=== PATIENT | female | born 1975 | race Caucasian/White ===

== ENCOUNTER → 2020-09-28 13:30 | Outpatient (CLI) | payer BC, SELFPAY ==
--- NOTE | ~2020-09-28 | MM_ITS ---
EXAMINATION: MM screening merlyn BI w tio HISTORY: Screening mammogram TECHNIQUE: Craniocaudal and mediolateral oblique 3-D tomosynthesis images were obtained and synthetic 2-D images were generated. CAD analysis was submitted and interpreted. COMPARISON: No prior mammogram is available for comparison at this institution. BREAST PARENCHYMAL COMPOSITION: The breasts are heterogeneously dense, which may obscure small masses . FINDINGS: Right breast asymmetries including 12 mm upper lobular possible mass (MLO Tomosynthesis edward ge 23/41) are suggested. Diagnostic right mammogram and right breast ultrasound examination are recom mended. Otherwise there is no evidence of suspicious mass, calcification, or architectural distortion to sugg est malignancy in either breast. There has been no suspicious interval change. IMPRESSION: 1. Right breast asymmetries, possible mass 2. Diagnostic right mammogram and right breast ultrasound examination are recommended BI-RADS Category 0: Incomplete: Needs additional imaging evaluation. Reviewed, dictated and finalized at location A. IMPRESSION: 1. Right breast asymmetries, possible mass 2. Diagnostic right mammogram and right breast ultrasound examination are recom mended BI-RADS Category 0: Incomplete: Needs additional imaging evaluation.
== END ==
PROVIDERS: Visit Provider Obstetrics & Gynecology Gynecology
DX: Z12.31 Encounter for screening mammogram for malignant neoplasm of breast (principal); R92.8 Other abnormal and inconclusive findings on diagnostic imaging of breast
CPT/HCPCS: 77063; 77067

== ENCOUNTER 2020-10-20 12:39 | Emergency (ER) | payer BC, SELFPAY ==
--- NOTE | 2020-10-20 12:42 | ED.ANXIETY ---
HPI - Anxiety General Chief Complaint: Anxiety Stated Complaint: anxiety/elevated bp Time Seen by Provider: 10/20/20 12:41 Source: patient, family and RN notes reviewed History of Present Illness HPI narrative: Patient is a 45-year-old female who presents the urgent care with her mother with complaints of anxiety, hypertension, palpitations. Patient states that she drank some strong coffee today which gave her some palpitations and then increased her anxiety. Patient states she went to her mother's house and her blood pressure was 160 over 90s and made her more anxious. Patient then states that she got hot and sweaty and thought she had low blood sugar which was 81 at the time they checked it. Patient states that that was low . So therefore she took one of her father's glucose tablets to raise her blood sugar. Patient states that she has had a decrease in appetite since the anxiety started this morning. Patient states that she does have a history of anxiety and was refused to take medications. Patient states that she can typically talk herself out of it or go on a workout and feel better . Patient states that nothing was making her feel better today. Reports of some increased stress recently with going back to a new job. Patient is extremely anxious but otherwise no acute distress noted. Patient currently denies of any chest pain or chest tightness. Denies of any difficulty breathing. Patient denies of any heart history. Patient and mother aware of the plan of care. Some parts of this dictation were generated by voice recognition software and may contain typographical and/or grammatical inaccuracies. Related Data Home Medications Medication Instructions Recorded Confirmed No Home Medications 10/20/20 10/20/20 Allergies Allergy/AdvReac Type Severity Reaction Status Date / Time No Known Allergies Allergy Unknown Unverified 09/07/06 14:09 NKDA; no latex Allergy Unknown Uncoded 08/23/02 11:59 none Allergy Unknown Uncoded 08/23/02 11:59 NO KNOWN DRUG ALLERGIES Allergy Y Uncoded 08/23/02 12:55 (Class Allergy) Review of Systems Review of Systems: CONSTITUTIONAL: Denies fever, chills, or sweats. EYES: Denies visual changes, redness, or discharge. ENT: Denies rhinorrhea, congestion, sore throat, or otalgia. CARDIOVASCULAR: Denies chest pain, edema. Reports of palpitations RESPIRATORY: Denies cough or dyspnea. GASTROINTESTINAL: Denies abdominal pain, nausea, vomiting, or diarrhea. GENITOURINARY: Denies dysuria or hematuria. SKIN: Denies rash or itching. MUSCULOSKELETAL: Denies back pain, joint pain, or myalgia. NEUROLOGIC: Denies headache, numbness, or weakness. PSYCHIATRIC: Reports of severe anxiety All other systems reviewed are negative, except as documented in HPI. [facility] Family History Family History (Updated 10/27/13 @ 07:13 by DOCTOR UNKNOWN) Father Family history of obesity Hypertension Family history of elevated blood lipids Grandparent Family history of obesity Family history of alcoholism Family history of malignant neoplasm Family history of kidney disease Diabetes mellitus Mother Family history of osteoporosis Social History Social History Smoking status: Never smoker Second hand tobacco smoke exposure: No Alcohol intake: never Comments At the time of my signature, I reviewed and agree with the nursing past medical, surgical, social, and family history. There is no relevant family history pertinent to the patient complaint. Exam Narrative: GENERAL: This is a well-nourished, well-developed patient, in no apparent distress. HEAD: normocephalic, atraumatic. EYES: PERRL. Sclera clear/white. Vision is grossly intact. EARS: External ears normal NOSE: External nose normal with no obvious nasal discharge, nares without redness, no rhinorrhea. THROAT: Mucous membranes moist NECK: Neck supple CARDIOVASCULAR: Regular rate and rhythm without murmurs, gallops, or rubs. RESPIRATO
[2020-10-20 12:47] VITALS: BP 161/80; PULSE 111; RESP 16; TEMP 37.2; O2SAT 100
--- NOTE | 2020-10-20 13:00 | ECG_ITS ---
Measurements Intervals [place] Rate: 90 P: 70 GA: 163 QRS: 51 QRSD: 121 T: 43 QT: 372 QTc: 456 Interpretive Statements SINUS RHYTHM WITH SINUS ARRHYTHMIA POSSIBLE LEFT ATRIAL ENLARGEMENT RIGHT BUNDLE BRANCH BLOCK ABNORMAL ECG Electronically Signed On 10-20-2020 16:14:13 CDT by Ashwin Patel D.O.
== END 2020-10-20 13:20 | disposition left against medical advice (07) ==
PROVIDERS: Emergency Provider Nurse Practitioner Family; PCP Internal Medicine
DX: F41.9 Anxiety disorder, unspecified (principal); R94.31 Abnormal electrocardiogram [ECG] [EKG]; I10 Essential (primary) hypertension
CPT/HCPCS: 93005; 99213; G0463

== ENCOUNTER 2020-10-20 16:30 | Emergency (ER) | payer BC, SELFPAY ==
--- NOTE | ~2020-10-20 | XR_ITS ---
EXAMINATION: XR chest 2V DATE: 10/20/2020 17:33 INDICATION: Chest tightness. TECHNIQUE: Frontal and lateral views of the chest were obtained. COMPARISON: Chest 2 views 09/07/2006 FINDINGS: There is mild scarring at right lung apex. No pleural effusion or pneumothorax. The heart s ize is normal. IMPRESSION: 1. Mild scarring at right lung apex. Reviewed, dictated and finalized at location A.
[2020-10-20 16:35] VITALS: BP 142/102; PULSE 115; RESP 20; TEMP 36.4; O2SAT 99
--- NOTE | 2020-10-20 17:28 | ED.ANXIETY ---
HPI - Anxiety General Chief Complaint: Anxiety Stated Complaint: anxiety Time Seen by Provider: 10/20/20 17:02 Source: patient Mode of arrival: ambulatory Limitations: no limitations History of Present Illness HPI narrative: This is 45 year old female who presents for evaluation of anxiety. Patient states this morning she developed of anxiety this morning. She was drinking her normal cup of coffee and she developed sensation of anxiousness, sweaty palms and heart racing. She reports these symptoms continued so she did some work out side to talk her mind off things. She reports she developed sensation of inpending doom. She reports she was having so much anxiety and shaking that she could not talk. She was evaluated at [facility] 4- 5 hours ago . She was found to have an abnormal EKG but her symptoms were likely anxiety. She went home to see if her symptoms would improve but she noticed her HR and BP was elevated. She reports mild chest tightness during her episodes anxiety. She reports history of anxiety but she has never experienced panic attack before and she has never required medications. She does note that last night she had a couple of glasses of wine at a function, and she normally does not drink. She does not feel that she was intoxicated. Related Data Allergies Allergy/AdvReac Type Severity Reaction Status Date / Time No Known Allergies Allergy Unknown Verified 10/20/20 16:44 Review of Systems Review of Systems: All systems reviewed & are unremarkable except as noted in HPI and below PMFSH Family History Family History (Updated 10/27/13 @ 07:13 by DOCTOR UNKNOWN) Father Family history of obesity Hypertension Family history of elevated blood lipids Grandparent Family history of obesity Family history of alcoholism Family history of malignant neoplasm Family history of kidney disease Diabetes mellitus Mother Family history of osteoporosis Social History Social History Smoking status: Never smoker Second hand tobacco smoke exposure: No Alcohol intake: never Exam Const: General: no acute distress and alert Orientation/consciousness: patient oriented x3 Eyes: EOM: EOMs intact bilaterally Chest: Chest palpation & inspection: normal inspection of the chest Resp: Effort & Inspection: normal respiratory effort and no retractions Auscultation: clear to auscultation bilaterally Cardio: Rate: regular rate Rhythm: regular rhythm Heart sounds: no murmurs GI: GI Palp: Yes Soft to palpation, No Tenderness to palpation present (GI) and No Guarding due to palpation present (GI) Auscultation: normal bowel sounds Skin: General skin exam: normal color Rashes: no rashes Neuro: General: patient oriented x3, moves all extremities and CN's II-XI intact bilaterally Psych: Mental Status: mental status grossly normal Affect: normal affect Course Reevaluation(s) Reevaluation #1: I discussed with patient that symptoms are likely related to anxiety but she will need to follow up with PCP regarding today's visit. EKG is abnormal but this does not seem to be related to ACS. Labs are unremarkable. She states she understands. Date: 10/20/20 Time: 19:00 Vital Signs Vital signs: Vital Signs Temperature 97.5 F L 10/20/20 16:35 Pulse Rate 115 H 10/20/20 16:35 Respiratory Rate 20 10/20/20 16:35 Blood Pressure 142/102 H 10/20/20 16:35 Pulse Oximetry 99 10/20/20 16:35 Temperature 97.5 F L 10/20/20 16:35 Pulse Rate 78 10/20/20 21:22 Respiratory Rate 18 10/20/20 21:22 Blood Pressure 140/90 10/20/20 21:22 Pulse Oximetry 100 10/20/20 21:22 MDM - Anxiety Lab Data Attestation: I reviewed the patient's lab results. Result diagrams: 10/20/20 17:47 10/20/20 17:47 Labs: Lab Results 10/20/20 10/20/20 10/20/20 Range/Units 17:47 17:47 17:47 WBC 6.6 (4.5-10.0) K/mm3 RBC 5.01 (4.2-5.4) M/mm3 Hgb 12
[2020-10-20] MEDS: SODIUM CHLORIDE 0.9% IV 1,000 ML 999 ML IV CONT (17:54)
[2020-10-20 18:13] LABS: Basophils Percent Auto 0.5 % (0.2-1.2); Eosinophils Percent Auto 0.2 % (0-4.4); Hematocrit 40.3 % (37.0-47.0); Hemoglobin 12.7 g/dL (12.0-15.0); Immature Granulocyte Absolute 0.03 K/mm3 (0.00-0.031); Immature Granulocyte Percent A 0.5 % (0-0.5); Lymphocytes Absolute Auto 0.99 K/mm3 (0.9-3.2); Lymphocytes Percent Auto 14.9 % (18.3-44.2); Mean Corpuscular HGB Conc 31.5 g/dl (32-36); Mean Corpuscular Hemoglobin 25.3 pg (26-34); Mean Corpuscular Volume 80.4 fl (80-100); Mean Platelet Volume 9.9 fl (7.4-10.4); Monocytes Absolute Auto 0.5 K/mm3 (0.1-0.6); Monocytes Percent Auto 7.5 % (2.6-8.5); Neutrophils Absolute Auto 5.1 K/mm3 (1.3-6.7); Neutrophils Percent Auto 76.4 % (45.5-73.1); Platelet Count Result 313 k/mm3 (150-375); Red Blood Count 5.01 M/mm3 (4.2-5.4); Red Cell Distribution Width 13.6 % (11.5-14.5); White Blood Count 6.6 K/mm3 (4.5-10.0)
[2020-10-20 18:17] LABS: Pregnancy On Board Control Positive; Urine Pregnancy Test Negative
--- NOTE | 2020-10-20 18:21 | PC.NURSE ---
assumed care of pt at this time. Report from CHRISTINE Hernandez
[2020-10-20 18:26] LABS: Magnesium 1.9 mg/dL (1.6-2.3)
[2020-10-20 18:26] LABS: Ethanol < 10 mg/dL (<10)
[2020-10-20 18:28] LABS: Alanine Aminotransferase 22 U/L (4-35); Albumin Level 4.8 g/dL (3.5-5.1); Alkaline Phosphatase 74 U/L (38-126); Amphetamine Screen Urine Negative (Negative); Anion Gap 12 mmol/L (8-16); Aspartate Amino Transferase 28 U/L (14-36); Barbiturate Screen Urine Negative (Negative); Benzodiazepines Screen Urine Negative (Negative); Bilirubin,Total 0.5 mg/dL (0.2-1.3); Blood Urea Nitrogen 9 mg/dL (7-17); Calcium 9.8 mg/dL (8.4-10.2); Cannabinoid Screen Urine Negative (Negative); Carbon Dioxide 22 mmol/L (22-30); Chloride 101 mmol/L (98-107); Cocaine Screen Urine Negative (Negative); Estimated CRCL calculation 84 ml/min; Estimated Glomerular Filt Rate > 60; Glucose 108 mg/dL (65-110); Methadone Screen Urine Negative (Negative); Opiate Screen Urine Negative (Negative); Phencyclidine Screen Urine Negative (Negative); Potassium 3.5 mmol/L (3.4-5.0); Sodium 135 mmol/L (137-145)
[2020-10-20 18:39] LABS: Troponin I < 0.012 ng/mL (0.000-0.034)
[2020-10-20 18:50] LABS: Prothrombin Time 12.9 Seconds (11.1-14.7)
[2020-10-20 18:51] LABS: Partial Thromboplastin Time 25.9 SECONDS (22.3-36.8)
[2020-10-20 18:53] LABS: D Dimer 0.32 ug/mL (<0.48)
--- NOTE | 2020-10-20 19:32 | ECG_ITS ---
Measurements Intervals [place] Rate: 117 P: 68 SD: 169 QRS: 50 QRSD: 115 T: -41 QT: 340 QTc: 476 Interpretive Statements SINUS TACHYCARDIA POSSIBLE LEFT ATRIAL ENLARGEMENT INCOMPLETE RIGHT BUNDLE BRANCH BLOCK ST-T WAVE ABNORMALITY IN ANTEROLAT/INF LEADS- CONSIDER ISCHEMIA BASELINE ARTIFACT- V3 ABNORMAL ECG Electronically Signed On 10-20-2020 20:34:08 CDT by Ashwin Patel D.O.
[2020-10-20] MEDS: LORazepam (*CRX) 0.5 MG TABLET PO (19:52)
[2020-10-20 21:22] VITALS: BP 140/90; PULSE 78; RESP 18; O2SAT 100
== END 2020-10-20 21:22 | disposition home or self-care (01) ==
PROVIDERS: Emergency Provider General Practice; PCP Internal Medicine
DX: F41.9 Anxiety disorder, unspecified (principal); R00.0 Tachycardia, unspecified; I45.10 Unspecified right bundle-branch block; R94.31 Abnormal electrocardiogram [ECG] [EKG]
CPT/HCPCS: 36415; 71046; 80053; 80307; 81025; 83735; 84443; 84484; 85025; 85380; 85610; 85730; 96360; 96361; 99284; A9270; J7030

== ENCOUNTER → 2020-10-30 14:12 | Outpatient (CLI) | payer BC, SELFPAY ==
--- NOTE | ~2020-10-30 | MM_ITS ---
EXAMINATION: MM diagnostic merlyn RT w tio HISTORY: Follow-up right breast mass TECHNIQUE: Additional 3-D tomosynthesis images of the right breast were performed and synthetic 2-D i mages were generated. CAD analysis was submitted and interpreted. High resolution Limited right breas t ultrasound was performed. COMPARISON: 09/28/2020 BREAST PARENCHYMAL COMPOSITION: The breasts are heterogenously dense, which may obscure small masses FINDINGS: MAMMOGRAPHIC FINDINGS: There is a mass in the upper central aspect of the right breast measuring approximately 1.4 cm. There are lobulated margins. No suspicious calcifications. ULTRASOUND: Limited right breast ultrasound: At 11:00, 4 cm from the nipple, there is an oval hypoechoic mass wit h some irregular margins measuring 1.3 x 0.8 x 1.0 cm. There is posterior acoustic attenuation. There is marginal vascularity. At 11:00, 4 cm from the nipple, there is an irregular shaped hypoechoic 5 m m mass with posterior acoustic shadowing and marginal vascularity. At 12:00, 3 cm from the nipple, th ere is irregular shaped hypoechoic mass measuring 7 mm adjacent to a small cyst. There are irregular margins, no significant posterior features. At 12:00, 2 cm from the nipple is an irregular shaped hyp oechoic mass measuring 6 mm with adjacent smaller hypoechoic mass measuring 3 mm. IMPRESSION: 1. Multiple abnormal irregular shaped right breast masses located at 11:00, 4 cm from the nipple, 11: 00, 4 cm from the nipple, 12:00, 3 cm from the nipple and 12:00, 2 cm from the nipple. 2. Ultrasound-guided breasts vacuum biopsies recommended for the 4 masses described above. BI-RADS category 4, suspicious findings. Reviewed, dictated and finalized at location A. IMPRESSION: 1. Multiple abnormal irregular shaped right breast masses located at 11:00, 4 c m from the nipple, 11:00, 4 cm from the nipple, 12:00, 3 cm from the nipple and 12:00, 2 cm from the nipple. 2. Ultrasound-guided breasts vacuum biopsies recommended for the 4 masses descr ibed above. BI-RADS category 4, suspicious findings.
--- NOTE | ~2020-10-30 | US_ITS ---
Please refer to diagnostic mammogram report dated 10/30/2020 for details. Reviewed, dictated and finalized at location A.
== END ==
PROVIDERS: Visit Provider Obstetrics & Gynecology Gynecology
DX: N63.11 Unspecified lump in the right breast, upper outer quadrant (principal); N63.15 Unspecified lump in the right breast, overlapping quadrants
CPT/HCPCS: 76642; 77061; 77065; G0279